=== PATIENT | female | born 1965 | race Caucasian/White ===

== ENCOUNTER 2018-01-06 13:23 | Day surgery (SDC) | payer BC, SELFPAY ==
[~2018-01-06] VITALS: Ht 160 cm; Wt 83.3 kg
[~2018-01-06 13:23] MED LIST: ALPR.25 PO; AMOCLA875 PO; ASPI325 PO; ASPI81CH PO; ASPI81EC PO; Aspir 8181 MG PO; BUSP15 PO; CARI350 PO; CITA20 PO; CYCL10; Catapres0.1 MG PO; DIVA500EC PO; DOXY100 PO; ELAVIL; ESTR2 PO; GABA100 PO; GABA300 PO; HYDACE5 PO; HYDACE7.5 PO; HYDMOR2 PO; HYDR-86 PO; IBUP600 PO; LAMO100 PO; LAMO25 PO; LEVCAR10; LISI10 PO; LISI20 PO; LORA1 PO; Lisinopril2.5 MG PO; METCAR500 PO; METO25ER PO; METO50 PO; NAPR500 PO; NITR.4SL SL; OXYACE7.5T PO; PARO10; PRAV10 PO; PRAV20 PO; PRAV40 PO; Pepcid20 MG PO; ROPI1 PO; RXHYDMOR2 PO; Roxicodone5 MG PO; SERT100; TOPI100 PO; TRAZ100 PO; TRAZ50; Valium5 MG PO
== END 2018-01-06 16:50 | disposition home or self-care (01) ==
LOC: ORSCSDS 13:23
PROVIDERS: Podiatrist
PROC: 0QSP04Z Reposition Left Metatarsal with Internal Fixation Device, Open Approach (ICD-10-PCS; principal; 2018-01-06 14:45)
DX: M20.12 Hallux valgus (acquired), left foot (principal); M79.672 Pain in left foot; I10 Essential (primary) hypertension; F17.210 Nicotine dependence, cigarettes, uncomplicated; Z79.899 Other long term (current) drug therapy
CPT/HCPCS: C1713; J0690; J2250; J2370; J3010; J7120

== ENCOUNTER 2020-07-11 11:36 | Day surgery (SDC) | payer OTHER ==
[~2020-07-11] VITALS: Ht 160 cm; Wt 84.0 kg
[~2020-07-11 11:36] MED LIST changes: +ALBU90OI INH; +HYDPAM25 PO; +IBUP400 PO; +MELO7.5 PO; +METF500 PO; +OLAN10 PO; +OXYB5ER
--- NOTE | 2020-07-11 14:25 | NUR ---
07/11/20 1425 Chelsea Braden 12 CC OF NORMAL SALINE AND INDIGO CARMINE INJECTED IN ASCENDING COLON
--- NOTE | 2020-07-11 15:33 | NUR ---
07/11/20 1533 Erica Banks WHEN ASKED PT. IF SHE HAD ANY ANY PAIN BUT VERBALIZED THE ROOF OF HER MOUTH WAS SORE. INSTRUCTED PT. THAT IT WAS PROBABLY FROM HER BITE BLOCK THAT WAS PLACED IN HER MOUTH FOR HER PROCEDURE & INSTRUCTED TO CALL IF DIDN'T GET BETTER.
== END 2020-07-11 15:23 | disposition home or self-care (01) ==
LOC: ORSCSDS 11:36
PROVIDERS: Student in an Organized Health Care Education/Training Program
PROC: 0DB98ZX Excision of Duodenum, Via Natural or Artificial Opening Endoscopic, Diagnostic (ICD-10-PCS; principal; 2020-07-11 13:15)
PROC: 0DBK8ZX Excision of Ascending Colon, Via Natural or Artificial Opening Endoscopic, Diagnostic (ICD-10-PCS; principal; 2020-07-11 13:15)
PROC: 0DBH8ZX Excision of Cecum, Via Natural or Artificial Opening Endoscopic, Diagnostic (ICD-10-PCS; principal; 2020-07-11 13:15)
PROC: 0DB78ZX Excision of Stomach, Pylorus, Via Natural or Artificial Opening Endoscopic, Diagnostic (ICD-10-PCS; principal; 2020-07-11 13:15)
PROC: 0DBN8ZX Excision of Sigmoid Colon, Via Natural or Artificial Opening Endoscopic, Diagnostic (ICD-10-PCS; principal; 2020-07-11 13:15)
PROC: 0DB58ZX Excision of Esophagus, Via Natural or Artificial Opening Endoscopic, Diagnostic (ICD-10-PCS; principal; 2020-07-11 13:15)
DX: R19.7 Diarrhea, unspecified (principal); K21.00 Gastro-esophageal reflux disease with esophagitis, without bleeding; K29.80 Duodenitis without bleeding; D12.2 Benign neoplasm of ascending colon; D12.0 Benign neoplasm of cecum; K29.70 Gastritis, unspecified, without bleeding; I10 Essential (primary) hypertension; E78.5 Hyperlipidemia, unspecified; I25.10 Atherosclerotic heart disease of native coronary artery without angina pectoris; G47.33 Obstructive sleep apnea (adult) (pediatric); F17.210 Nicotine dependence, cigarettes, uncomplicated; K75.81 Nonalcoholic steatohepatitis (NASH); E11.9 Type 2 diabetes mellitus without complications; Z79.899 Other long term (current) drug therapy; Z79.82 Long term (current) use of aspirin; Z86.718 Personal history of other venous thrombosis and embolism; Z79.84 Long term (current) use of oral hypoglycemic drugs
CPT/HCPCS: 82947; 88305; 88342; J2250; J2704; J7120

== ENCOUNTER 2020-12-02 13:13 | Day surgery (SDC) | payer OTHER ==
[~2020-12-02] VITALS: Ht 160 cm; Wt 84.5 kg
--- NOTE | 2020-12-02 13:34 | NUR ---
12/02/20 Arsalan4 Rama Julien 1 TRY RIGHT HAND BLEW
--- NOTE | 2020-12-02 14:52 | NUR ---
12/02/20 1452 MICKY GOMEZ 13 CC SALINE INJECTED DURING PROCEDURE
== END 2020-12-02 15:23 | disposition home or self-care (01) ==
LOC: ORSCSDS 13:13
PROVIDERS: Student in an Organized Health Care Education/Training Program
PROC: 0DBK8ZX Excision of Ascending Colon, Via Natural or Artificial Opening Endoscopic, Diagnostic (ICD-10-PCS; principal; 2020-12-02 15:00)
DX: Z86.010 Personal history of colon polyps (principal); D12.2 Benign neoplasm of ascending colon; K57.30 Diverticulosis of large intestine without perforation or abscess without bleeding; K64.8 Other hemorrhoids; F17.210 Nicotine dependence, cigarettes, uncomplicated; E11.9 Type 2 diabetes mellitus without complications; I10 Essential (primary) hypertension; E78.5 Hyperlipidemia, unspecified; G47.33 Obstructive sleep apnea (adult) (pediatric); K21.9 Gastro-esophageal reflux disease without esophagitis; Z79.899 Other long term (current) drug therapy; E66.9 Obesity, unspecified; Z68.33 Body mass index [BMI] 33.0-33.9, adult
CPT/HCPCS: 82947; 88305; J2250; J2405; J2704; J7120

== ENCOUNTER 2021-11-11 11:28 | Day surgery (SDC) | payer OTHER ==
[~2021-11-11] VITALS: Ht 160 cm; Wt 88.7 kg
[~2021-11-11 11:28] MED LIST changes: +BUSP5 PO; +DULO30 PO; -ESTR2 PO; +ESTRADIOL1 MG PO; +MOBIC15 MG; +OMEP20ER PO; +ROSU10TA PO
== END 2021-11-11 13:40 | disposition home or self-care (01) ==
LOC: ORSCSDS 11:28
PROVIDERS: Student in an Organized Health Care Education/Training Program
PROC: 0DBM8ZX Excision of Descending Colon, Via Natural or Artificial Opening Endoscopic, Diagnostic (ICD-10-PCS; principal; 2021-11-11 12:45)
PROC: 0DBK8ZX Excision of Ascending Colon, Via Natural or Artificial Opening Endoscopic, Diagnostic (ICD-10-PCS; principal; 2021-11-11 12:45)
PROC: 0DBL8ZX Excision of Transverse Colon, Via Natural or Artificial Opening Endoscopic, Diagnostic (ICD-10-PCS; principal; 2021-11-11 12:45)
DX: Z86.010 Personal history of colon polyps (principal); D12.3 Benign neoplasm of transverse colon; D12.2 Benign neoplasm of ascending colon; D12.4 Benign neoplasm of descending colon; K57.30 Diverticulosis of large intestine without perforation or abscess without bleeding; K64.8 Other hemorrhoids; E11.9 Type 2 diabetes mellitus without complications; I10 Essential (primary) hypertension; E78.5 Hyperlipidemia, unspecified; Z79.899 Other long term (current) drug therapy; Z79.84 Long term (current) use of oral hypoglycemic drugs; I25.10 Atherosclerotic heart disease of native coronary artery without angina pectoris; Z86.718 Personal history of other venous thrombosis and embolism; J45.909 Unspecified asthma, uncomplicated; F43.10 Post-traumatic stress disorder, unspecified; Z87.891 Personal history of nicotine dependence; Z79.82 Long term (current) use of aspirin; G47.33 Obstructive sleep apnea (adult) (pediatric); E66.9 Obesity, unspecified; Z68.34 Body mass index [BMI] 34.0-34.9, adult
CPT/HCPCS: 82947; 88305; J2250; J2704; J7120

== ENCOUNTER 2021-12-07 10:16 | Emergency (ER) | payer OTHER ==
[~2021-12-07] VITALS: Ht 157.5 cm; Wt 88.5 kg
[2021-12-07] MEDS ORDERED: CEPH500 PO (11:43)
== END 2021-12-07 12:18 | disposition home or self-care (01) ==
LOC: ER 10:16
DX: L03.115 Cellulitis of right lower limb (principal); E11.9 Type 2 diabetes mellitus without complications; F17.210 Nicotine dependence, cigarettes, uncomplicated; Z88.2 Allergy status to sulfonamides; Z88.0 Allergy status to penicillin; Z79.899 Other long term (current) drug therapy; Z79.84 Long term (current) use of oral hypoglycemic drugs; Z79.82 Long term (current) use of aspirin
CPT/HCPCS: 93971; 99283-25; A9270

== ENCOUNTER 2022-01-27 06:24 | Day surgery (SDC) | payer OTHER ==
[~2022-01-27] VITALS: Ht 157.5 cm; Wt 88.5 kg
[~2022-01-27 06:24] MED LIST changes: +CEPH500 PO
--- NOTE | 2022-01-27 06:46 | NUR ---
PT ADMITTED TO [facility]. AGREES WITH PLANNED SURGERY. LUNG SOUNDS CLEAR.
--- NOTE | 2022-01-27 09:26 | NUR ---
0915- NASHUA GIVEN PER ORDER. STERI STRIP TO BELLY BUTTON C/D/I. UNABLE TO GET MY COMPUTER TO WORK TO SCAN PT MEDICATION, HAD TO OVERRIDE. PT TOLERTING CRACKERS AND KAVYA MIST.
--- NOTE | 2022-01-27 10:12 | NUR ---
0945- pt dressed, STERI STRIP TO BELLY BUTTON C/D/I. PT STATES SHE HAS ICE PACK AT HOME. Discharge instructions reviewed with patient. Patient verbalizes understanding. Copy given to patient to take home. Discharged via wheelchair to private car for ride home.
== END 2022-01-27 09:45 | disposition home or self-care (01) ==
LOC: ORSCMMR 06:24 → ORD 07:30 → ORSCMMR 07:30
PROVIDERS: Surgery
PROC: 0WUF0JZ Supplement Abdominal Wall with Synthetic Substitute, Open Approach (ICD-10-PCS; principal; 2022-01-27 07:30)
DX: K42.0 Umbilical hernia with obstruction, without gangrene (principal); I10 Essential (primary) hypertension; Z87.891 Personal history of nicotine dependence; K21.9 Gastro-esophageal reflux disease without esophagitis; G40.802 Other epilepsy, not intractable, without status epilepticus; E11.9 Type 2 diabetes mellitus without complications; F41.8 Other specified anxiety disorders; F43.10 Post-traumatic stress disorder, unspecified; Z79.899 Other long term (current) drug therapy; Z79.82 Long term (current) use of aspirin; Z79.84 Long term (current) use of oral hypoglycemic drugs
CPT/HCPCS: 82947; A9270; C1781; J0690; J1100; J1885; J2370; J2405; J2704; J2710; J3010; J7120

== ENCOUNTER 2023-04-06 10:33 | Emergency (ER) | payer OTHER ==
[~2023-04-06] VITALS: Ht 157.5 cm; Wt 79.4 kg
[2023-04-06 11:00] VITALS: BP 149/86
== END 2023-04-06 11:48 | disposition home or self-care (01) ==
LOC: ER 10:33
DX: M54.50 Low back pain, unspecified (principal); M25.571 Pain in right ankle and joints of right foot; M25.471 Effusion, right ankle; M25.511 Pain in right shoulder; M25.561 Pain in right knee; W01.198A Fall on same level from slipping, tripping and stumbling with subsequent striking against other object, initial encounter; X50.1XXA Overexertion from prolonged static or awkward postures, initial encounter; E11.9 Type 2 diabetes mellitus without complications; F17.210 Nicotine dependence, cigarettes, uncomplicated; Z88.2 Allergy status to sulfonamides; Z79.899 Other long term (current) drug therapy; Z79.82 Long term (current) use of aspirin; Z79.84 Long term (current) use of oral hypoglycemic drugs
CPT/HCPCS: 96372; 99283-25; J1885

== ENCOUNTER 2023-09-17 09:29 | Emergency (ER) | payer OTHER ==
[~2023-09-17] VITALS: Ht 160 cm; Wt 73.5 kg
[~2023-09-17 09:29] MED LIST changes: -DULO30 PO; +DULO60 PO; +METO25 PO
[2023-09-17 09:49] LABS: BASOPHILS ABSOLUTE AUTO 0.13 K/mm3 (0.00-0.23); BASOPHILS PERCENT AUTO 1 % (0-2); EOSINOPHILS ABSOLUTE AUTO 0.41 K/mm3 (0.00-0.68); EOSINOPHILS PERCENT AUTO 3 % (0-6); Hematocrit 40.2 % (33.0-51.0); Hemoglobin 13.7 g/dL (11.5-16.0); IMMATURE GRAN ABSOLUTE AUTO 0.05 K/mm3 (0.00-0.10); IMMATURE GRAN PERCENT AUTO 0 % (0-1); LYMPHOCYTES ABSOLUTE AUTO 2.15 K/mm3 (0.84-5.20); LYMPHOCYTES PERCENT AUTO 16 % (21-46); MONOCYTES ABSOLUTE AUTO 0.58 K/mm3 (0.16-1.47); MONOCYTES PERCENT AUTO 4 % (4-13); Mean Corpuscular HGB 30.4 pg (26.0-34.0); Mean Corpuscular HGB Conc 34.1 g/dL (31.5-36.5); Mean Corpuscular Volume 89 fL (80-100); Mean Platelet Volume 9.7 fL (9.1-12.4); NEUTROPHILS ABSOLUTE AUTO 10.08 K/mm3 (1.96-9.15); NEUTROPHILS PERCENT AUTO 75 % (41-73); Platelet Count 310 K/mm3 (150-400); RDW Standard Deviation 42.5 fL (35.1-46.3)
[2023-09-17 10:11] LABS: Albumin, Blood 3.6 g/dL (3.4-5.0); Bilirubin, Total 0.3 mg/dL (0.1-1.0); Bun/Creatinine Ratio 36.4 (12.0-20.0); Creatinine, Blood 0.41 mg/dL (0.40-1.00); Globulin, Blood 3.5 g/dL (2.2-4.0); Potassium, Blood 3.5 mmol/L (3.5-5.5); Total Protein, Blood 7.1 g/dL (6.4-8.2)
[2023-09-17 10:23] LABS: Source, Urine Clean Catch
[2023-09-17 10:26] LABS: Bilirubin, Urine Neg (Neg); Blood, Urine 3+ (Neg); Color, Urine Yellow (P-Yellow); Glucose Qualitative, Urine Neg (Neg); Ketones, Urine Neg (Neg); Leukocyte Esterase, Urine Neg (Neg); Nitrite, Urine Neg (Neg); Protein, Urine 2+ (Neg); Urobilinogen, Urine NORM (Normal)
[2023-09-17 10:31] LABS: Appearance, Urine Hazy (Clear)
[2023-09-17 10:34] LABS: Bacteria Mod /hpf; Squamous Epithelial Cells Few /hpf (Few)
[2023-09-17 10:35] LABS: Amorphous Light (0-Heavy); Hyaline Casts 0-2 /lpf (0-2); Mucus Light (0-Heavy)
[2023-09-17] MEDS ORDERED: HYDROCODONE-AC1 EA19 PO ×2 (12:41→12:43)
[2023-09-17] MEDS ORDERED: AMOCLA875 PO (12:41)
[2023-09-17] MEDS ORDERED: PROM25 PO (12:41)
[2023-09-17 12:50] VITALS: BP 171/88
== END 2023-09-17 13:08 | disposition home or self-care (01) ==
LOC: ER 09:29
PROVIDERS: Emergency Medicine
DX: K52.9 Noninfective gastroenteritis and colitis, unspecified (principal); F17.210 Nicotine dependence, cigarettes, uncomplicated; Z88.0 Allergy status to penicillin; Z88.2 Allergy status to sulfonamides
CPT/HCPCS: 74177; 80053; 81001; 83690; 84484; 85025; 87086; 93005; 93010; 96361; 96374-59; 96375; 96376; 99284-25; A9270; J1170; J2405; J7030; Q9967

== ENCOUNTER 2023-09-18 10:36 | Inpatient (IN) | payer OTHER ==
[~2023-09-18] VITALS: Ht 157.5 cm; Wt 72.5 kg
[~2023-09-18 10:36] MED LIST changes: +HYDROCODONE-AC1 EA19 PO; +PROM25 PO
[2023-09-18 11:47] LABS: BASOPHILS ABSOLUTE AUTO 0.14 K/mm3 (0.00-0.23); BASOPHILS PERCENT AUTO 1 % (0-2); EOSINOPHILS ABSOLUTE AUTO 0.26 K/mm3 (0.00-0.68); EOSINOPHILS PERCENT AUTO 2 % (0-6); Hematocrit 40.9 % (33.0-51.0); Hemoglobin 14.2 g/dL (11.5-16.0); IMMATURE GRAN ABSOLUTE AUTO 0.04 K/mm3 (0.00-0.10); IMMATURE GRAN PERCENT AUTO 0 % (0-1); LYMPHOCYTES ABSOLUTE AUTO 1.93 K/mm3 (0.84-5.20); LYMPHOCYTES PERCENT AUTO 16 % (21-46); MONOCYTES ABSOLUTE AUTO 0.69 K/mm3 (0.16-1.47); MONOCYTES PERCENT AUTO 6 % (4-13); Mean Corpuscular HGB 31.1 pg (26.0-34.0); Mean Corpuscular HGB Conc 34.7 g/dL (31.5-36.5); Mean Corpuscular Volume 90 fL (80-100); Mean Platelet Volume 9.7 fL (9.1-12.4); NEUTROPHILS ABSOLUTE AUTO 8.93 K/mm3 (1.96-9.15); NEUTROPHILS PERCENT AUTO 74 % (41-73); Platelet Count 322 K/mm3 (150-400); RDW Coefficient Variation 13.2 % (11.7-14.2); RDW Standard Deviation 43.1 fL (35.1-46.3); Red Blood Cell Count 4.56 M/mm3 (3.80-5.20); White Blood Cell Count 11.99 K/mm3 (4.00-11.30)
[2023-09-18 12:09] LABS: Albumin, Blood 3.8 g/dL (3.4-5.0); Albumin/Globulin Ratio 1.1 (0.8-1.8); Bilirubin, Total 0.6 mg/dL (0.1-1.0); Bun/Creatinine Ratio 18.5 (12.0-20.0); Calcium, Blood 9.2 mg/dL (8.5-10.1); Creatinine, Blood 0.43 mg/dL (0.40-1.00); Globulin, Blood 3.6 g/dL (2.2-4.0); Potassium, Blood 2.9 mmol/L (3.5-5.5); Total Protein, Blood 7.4 g/dL (6.4-8.2)
[2023-09-18 16:42] VITALS: BP 204/78
[2023-09-18 19:05] VITALS: BP 184/84
[2023-09-18 23:27] LABS: Adenovirus F 40/41 Not Detected (NOT DETECT); Astrovirus Not Detected (NOT DETECT); Campylobacter Sp Not Detected (NOT DETECT); Cryptosporidium Not Detected (NOT DETECT); Cyclospora Cayetanensis Not Detected (NOT DETECT); E. Coli O157 Not Detected (NOT DETECT); Entamoeba Histolytica Not Detected (NOT DETECT); Enteroaggregative E. coli-EAEC Not Detected (NOT DETECT); Enteropathogenic E. coli-EPEC Not Detected (NOT DETECT); Enterotoxigenic E. coli-ETEC Not Detected (NOT DETECT); Giardia Lamblia Not Detected (NOT DETECT); Norovirus GI/GII Not Detected (NOT DETECT); Plesiomonas Shigelloides Not Detected (NOT DETECT); Rotavirus A Not Detected (NOT DETECT); Salmonella Sp Not Detected (NOT DETECT); Sapovirus Not Detected (NOT DETECT); Shiga Toxin-prod E. coli-STEC Not Detected (NOT DETECT); Shigella/Enteroin E. coli-EIEC Not Detected (NOT DETECT); Vibrio Cholerae Not Detected (NOT DETECT); Vibrio Sp Not Detected (NOT DETECT); Yersinia Enterocolitica Not Detected (NOT DETECT)
[2023-09-19 03:50] VITALS: BP 131/90
--- NOTE | 2023-09-19 04:44 | NUR ---
SHIFT SUMMARY JORDYN WAS ALERT AND FULLY ORIENTED ON ASSESSMENT. SHE IS INDEPENDENT IN THE ROOM, AND COOPERATIVE. PT WAS VERY PAINFUL AT THE START OF SHIFT IN EPIGASTRIC REGION. PT ONLY HAD 25mic OF FENTANYL Q6 ORDERED, I GAVE THAT TO NO EFFECT WHATSOEVER, AND CONTACTED THE HOSPITALIST. ORDER PLACED FOR 1-2 MG DILAUDED Q6. PT BECAME NAUSEOUS AND HAD ONE EPISODE OF VOMITING. 1MG DILAUDED AND 4MG ZOFRAN ADMINISTERED TO IMMEDIATE AND LASTING RELIEF. PT IS STILL NPO AT THIS TIME, ALL PO MEDS HELD. 10 MG HYDRALYZINE ADMINISTERED FOR HIGH B/P. PT RESTING IN BED AT A LOW POSTION WITH CALL LIGHT IN REACH.
[2023-09-19 05:51] LABS: BASOPHILS PERCENT AUTO 2 % (0-2); EOSINOPHILS PERCENT AUTO 3 % (0-6); Hematocrit 43.2 % (33.0-51.0); Hemoglobin 14.7 g/dL (11.5-16.0); IMMATURE GRAN ABSOLUTE AUTO 0.03 K/mm3 (0.00-0.10); IMMATURE GRAN PERCENT AUTO 0 % (0-1); LYMPHOCYTES ABSOLUTE AUTO 3.16 K/mm3 (0.84-5.20); LYMPHOCYTES PERCENT AUTO 27 % (21-46); MONOCYTES ABSOLUTE AUTO 1.19 K/mm3 (0.16-1.47); MONOCYTES PERCENT AUTO 10 % (4-13); Mean Corpuscular HGB 30.6 pg (26.0-34.0); Mean Corpuscular Volume 90 fL (80-100); Mean Platelet Volume 9.8 fL (9.1-12.4); NEUTROPHILS ABSOLUTE AUTO 6.71 K/mm3 (1.96-9.15); NEUTROPHILS PERCENT AUTO 57 % (41-73); Platelet Count 372 K/mm3 (150-400); RDW Standard Deviation 42.4 fL (35.1-46.3); White Blood Cell Count 11.69 K/mm3 (4.00-11.30)
[2023-09-19 06:20] LABS: Albumin, Blood 3.9 g/dL (3.4-5.0); Albumin/Globulin Ratio 1.1 (0.8-1.8); Bilirubin, Total 0.6 mg/dL (0.1-1.0); Bun/Creatinine Ratio 21.1 (12.0-20.0); Calcium, Blood 9.3 mg/dL (8.5-10.1); Creatinine, Blood 0.48 mg/dL (0.40-1.00); Globulin, Blood 3.5 g/dL (2.2-4.0); Total Protein, Blood 7.4 g/dL (6.4-8.2)
[2023-09-19 07:30] VITALS: BP 126/78
[2023-09-19 15:15] VITALS: BP 161/90
--- NOTE | 2023-09-19 16:56 | NUR ---
SHIFT SUMMARY; PATIENT IS CHANGED TO A FULL LIQUID DIET. SHE REQUESTS PAIN MEDICATION TODAY FOR ABDOMINAL PAIN. DOES VOMIT SMALL AMOUNT AFTER LUNCH. SHE IS INDEPENDANT TO BATHROOM. USES CALL LIGHT APPROPRIATELY. CHEM BG ARE ALL WNL AND DO NOT REQUIRE COVERAGE WITH INSULIN.
[2023-09-19 19:45] VITALS: BP 128/69
--- NOTE | 2023-09-20 04:10 | NUR ---
SHIFT SUMMARY JORDYN IS ALERT AND FULLY ORIENTED ON ASSESSMENT, AND SHE IS INDEPENDENT IN THE ROOM. PT STATES THAT SHE HAS BEEN FEELING BETTER TODAY. SHE HAS BEEN ADVANCED TO FULL LIQUID DIET, AND HAS BEEN TOLERATING HER PO MEDS. PT IS STILL PAINFUL, AND HAS INTERMITTENT NAUSEA. MEDICATED PER EMAR. NO ACUTE EVENTS TONIGHT, NO CHANGES IN CONDITION NOTED. PT RESTING IN BED AT A LOW POSITION.
[2023-09-20 05:03] LABS: Hematocrit 39.2 % (33.0-51.0); Hemoglobin 13.4 g/dL (11.5-16.0); Mean Corpuscular HGB 31.5 pg (26.0-34.0); Mean Corpuscular HGB Conc 34.2 g/dL (31.5-36.5); Mean Corpuscular Volume 92 fL (80-100); Mean Platelet Volume 9.6 fL (9.1-12.4); Platelet Count 312 K/mm3 (150-400); RDW Coefficient Variation 13.2 % (11.7-14.2); RDW Standard Deviation 44.5 fL (35.1-46.3); Red Blood Cell Count 4.26 M/mm3 (3.80-5.20); White Blood Cell Count 9.82 K/mm3 (4.00-11.30)
[2023-09-20 05:11] VITALS: BP 121/79
[2023-09-20 05:30] LABS: Bun/Creatinine Ratio 32.7 (12.0-20.0); Calcium, Blood 8.6 mg/dL (8.5-10.1); Creatinine, Blood 0.55 mg/dL (0.40-1.00); Potassium, Blood 3.9 mmol/L (3.5-5.5)
[2023-09-20 07:56] VITALS: BP 126/87
[2023-09-20] MEDS ORDERED: OXYC5 PO (14:13)
[2023-09-20] MEDS ORDERED: Methocarbamol750 MG PO (14:14)
[2023-09-20] MEDS ORDERED: ONDA4ODT PO (14:14)
[2023-09-20] MEDS ORDERED: PREG200 PO (14:15)
--- NOTE | 2023-09-20 15:50 | NUR ---
CALLED DR VILLAFANA- PT MEDICATED FOR PAIN WITH PO NORCO. PAIN WAS MANAGED, BUT DOSE MAY BE A LITTLE LOW. PLAN IS FOR THE PT TO DC HOME TOMORROW POTENTIALLY; PO PAIN MANAGEMENT NEEDS TO BE CORRECT. PT HAD OXY ORDERED AT HOME, SHE STATES THIS MED MADE HER REALLY NAUSEAOUS, NORCO DOES NOT SEEM TO DO THAT. SPOKE TO MD ABOUT DOSE CHANGE TO ENSURE PO MANAGEMENT IS ADEQUATE. ALSO THE PT DOES NOT HAVE ANY ANTI-EMETICS THAT ARE PO. MD WILL BE ROUNDING SOON AND WILL EVALUATE THE NEED FOR ADDITIONAL MEDS.
[2023-09-20 16:36] VITALS: BP 121/68
--- NOTE | 2023-09-20 17:24 | NUR ---
CALLED DR ROSARIO- PT IS UP PACING IN THE ROOM AND APPEARS RESTLESS AND PAINFUL, WHEN ASKED SHE STATES HER PAIN LEVEL IS 6/10. PAIN MED DOSE WAS CHANGED HOWEVER NEXT DOSE NOT AVAILABLE FOR ADDITIONAL THREE HOURS. OT ORDER RECIEVED FOR 2 NORCO NOW. NEXT DOSE CAN BE Q6.
--- NOTE | 2023-09-20 17:41 | NUR ---
SHIFT SUMMARY- PT ALERT, ORIENTED AND INDEPENDENT IN THE ROOM. SHE IS CURRENTLY DRINKING A CUP OF BROTH AND SOME COFFEE. SHE DOES NOTLIKE THE OFFERINGS FOR THE FULL LIQUID DIET AND HAS NOT BEEN CONSUMING MUCH. PAIN MEDS CHANGED TO 1-2 TABS Q6P MD WILL DC IV ORDERS AND SWITCH TO PO ANTIEMETICS WELL. FIRST HIGHER DOSE OF PAIN MEDS GIVEN THIS EVENING. WILL PASS ON TO NIGHT RN IN REPORT, PLAN IS FOR PT TO DC HOME TOMORROW. PT IN BED, CALL LIGHT IN REACH, NO S&S OF DISTRESS NOTED.
[2023-09-20 20:42] VITALS: BP 109/67
[2023-09-21 05:11] VITALS: BP 104/52
[2023-09-21 05:34] LABS: BASOPHILS ABSOLUTE AUTO 0.16 K/mm3 (0.00-0.23); BASOPHILS PERCENT AUTO 2 % (0-2); EOSINOPHILS ABSOLUTE AUTO 1.02 K/mm3 (0.00-0.68); EOSINOPHILS PERCENT AUTO 15 % (0-6); Hematocrit 37.6 % (33.0-51.0); Hemoglobin 12.7 g/dL (11.5-16.0); IMMATURE GRAN ABSOLUTE AUTO 0.02 K/mm3 (0.00-0.10); IMMATURE GRAN PERCENT AUTO 0 % (0-1); LYMPHOCYTES ABSOLUTE AUTO 2.44 K/mm3 (0.84-5.20); LYMPHOCYTES PERCENT AUTO 35 % (21-46); MONOCYTES ABSOLUTE AUTO 0.68 K/mm3 (0.16-1.47); MONOCYTES PERCENT AUTO 10 % (4-13); Mean Corpuscular HGB 30.7 pg (26.0-34.0); Mean Corpuscular HGB Conc 33.8 g/dL (31.5-36.5); Mean Corpuscular Volume 91 fL (80-100); Mean Platelet Volume 9.6 fL (9.1-12.4); NEUTROPHILS ABSOLUTE AUTO 2.61 K/mm3 (1.96-9.15); NEUTROPHILS PERCENT AUTO 38 % (41-73); Platelet Count 274 K/mm3 (150-400); RDW Coefficient Variation 12.8 % (11.7-14.2); RDW Standard Deviation 42.4 fL (35.1-46.3); Red Blood Cell Count 4.14 M/mm3 (3.80-5.20); White Blood Cell Count 6.93 K/mm3 (4.00-11.30)
[2023-09-21 06:04] LABS: Bun/Creatinine Ratio 27.8 (12.0-20.0); Calcium, Blood 8.7 mg/dL (8.5-10.1); Creatinine, Blood 0.54 mg/dL (0.40-1.00); Potassium, Blood 3.7 mmol/L (3.5-5.5)
[2023-09-21 07:43] VITALS: BP 117/66
--- NOTE | 2023-09-21 08:03 | NUR ---
SHIFT SUMMARY PT IS A&OX4, VSS ON ROOM AIR. C/O PAIN MORE PREDOMINANT IN HER BACK. PAIN MEDICATIONS GIVEN PER EMAR. UP INDEPENDENTLY IN ROOM/BR. VOIDING ADEQUATELY, NO BM OVER NIGHT. ENTERIC PRECAUTIONS MAINTAINED. BED IN LOWEST POSITION, CALL LIGHT WITHIN REACH. FIRE SAFETY CHECKS COMPLETED
--- NOTE | 2023-09-21 13:02 | NUR ---
CALLED DR ROSARIO- SPOKE TO MD ON EVENING ROUNDS AND DISCUSSED CHANGING TO PO ANTI-EMETICS, HOWEVER THERE IS STILL IV ORDER FOR THAT WELL IV DILAUDID. DR ROSARIO IS CHANGING ORDERS AT THIS TIME. PT HAD STATED A LITTLE NAUSEA THIS AFTERNOON THAT IMPROVED WITH SIMETHICONE. AWARE.
[2023-09-21 15:03] VITALS: BP 101/62
--- NOTE | 2023-09-21 16:41 | NUR ---
SHIFT SUMMARY PATIENT WITH SOME ABDDOMINAL PAIN AFTER BREAKFAST, RELIEVED BY SIMETHICONE WITH LARGE AMOUNTS OF BURPING. PATIENT HAD SOME NAUSEA THIS AFTERNOON RELIEVED BY ORAL ZOFRAN. NO BOWEL MOVEMENTS TODAY. PATIENT UP AD PRO IN ROOM INDEPENDENT. PATIENT MAKES NEEDS KNOWN.
[2023-09-21 22:27] VITALS: BP 114/75
--- NOTE | 2023-09-22 04:55 | NUR ---
SHIFT SUMMARY - NO ACUTE CHANGES THROUGHOUT THIS SHIFT. PT'S MAIN COMPLAINT HAS BEEN BACK PAIN, AND MILD ABDOMINAL PAIN. MEDICATED PER ORDERS. PT HAS BEEN SLEEPING THROUGHOUT MOST OF THE NIGHT. PT IS CURRENTLY SITTING UP IN THE CHAIR. PT DENIES HAVING ANY DIARRHEA THROUGHOUT THIS SHIFT. CALL LIGHT WITHIN REACH. BED IN LOW POSITION. PT HAS BEEN INDEPENDENT IN THE ROOM. WILL CONTINUE TO MONITOR UNTIL AM SHIFT CHANGE.
[2023-09-22 05:13] VITALS: BP 104/71
[2023-09-22 06:01] LABS: BASOPHILS ABSOLUTE AUTO 0.16 K/mm3 (0.00-0.23); BASOPHILS PERCENT AUTO 2 % (0-2); EOSINOPHILS ABSOLUTE AUTO 0.99 K/mm3 (0.00-0.68); EOSINOPHILS PERCENT AUTO 13 % (0-6); Hematocrit 38.8 % (33.0-51.0); IMMATURE GRAN ABSOLUTE AUTO 0.01 K/mm3 (0.00-0.10); IMMATURE GRAN PERCENT AUTO 0 % (0-1); LYMPHOCYTES ABSOLUTE AUTO 2.71 K/mm3 (0.84-5.20); LYMPHOCYTES PERCENT AUTO 36 % (21-46); MONOCYTES ABSOLUTE AUTO 0.72 K/mm3 (0.16-1.47); MONOCYTES PERCENT AUTO 9 % (4-13); Mean Corpuscular HGB 30.4 pg (26.0-34.0); Mean Corpuscular HGB Conc 33.5 g/dL (31.5-36.5); Mean Corpuscular Volume 91 fL (80-100); Mean Platelet Volume 9.9 fL (9.1-12.4); NEUTROPHILS ABSOLUTE AUTO 3.05 K/mm3 (1.96-9.15); NEUTROPHILS PERCENT AUTO 40 % (41-73); Platelet Count 305 K/mm3 (150-400); RDW Coefficient Variation 12.8 % (11.7-14.2); RDW Standard Deviation 42.3 fL (35.1-46.3); Red Blood Cell Count 4.28 M/mm3 (3.80-5.20); White Blood Cell Count 7.64 K/mm3 (4.00-11.30)
--- NOTE | 2023-09-22 06:02 | NUR ---
PT DECLINED AN ICE PACK OR ANYTHING FURTHER FOR HER BACK PAIN - REPORTS "I AM USED TO IT." PT HAS BEEN WEARING HER BACK BRACE ON/OFF THROUGHOUT THE NIGHT, WHICH SHE REPORTS ALSO HELPS HER BACK PAIN.
[2023-09-22 06:30] LABS: Bun/Creatinine Ratio 21.5 (12.0-20.0); Calcium, Blood 8.9 mg/dL (8.5-10.1); Creatinine, Blood 0.56 mg/dL (0.40-1.00); Potassium, Blood 3.8 mmol/L (3.5-5.5)
[2023-09-22 07:58] VITALS: BP 125/79
[2023-09-22 10:11] VITALS: BP 112/69
[2023-09-22] MEDS ORDERED: VANCOCIN HCL125 MG PO (13:23)
[2023-09-22] MEDS ORDERED: LISI20 PO (13:23)
--- NOTE | 2023-09-22 16:45 | NUR ---
DISCHARGE NOTE- PT WAS GIVEN VERBAL AND WRITTEN DISCHARGE INSTRUCTIONS AND ACKNOWLEDGED UNDERSTANDING OF THEM. MEDS WERE FAXED TO [facility] PER PT REQUEST. PT ESCORTED OUT VIA WC BY THE GATEHOUSE ATTENDANT. NO S&S OF DISTRESS AT THE TIME OF DISCHARGE. IV DC'D PRIOR TO DISCHARGE.
== END 2023-09-22 14:30 | disposition home or self-care (01) | DRG 392 ==
LOC: ER 10:36 → MEDS 10:37 → ENPENDDIS 09-22 13:28 → MEDS 09-22 14:30
PROVIDERS: Emergency Medicine; Family Medicine; Student in an Organized Health Care Education/Training Program; ADMIT Internal Medicine
DX: K52.9 Noninfective gastroenteritis and colitis, unspecified (principal); F17.210 Nicotine dependence, cigarettes, uncomplicated; E87.6 Hypokalemia; F32.A Depression, unspecified; F43.10 Post-traumatic stress disorder, unspecified; E11.9 Type 2 diabetes mellitus without complications; M19.90 Unspecified osteoarthritis, unspecified site; M54.9 Dorsalgia, unspecified; G25.81 Restless legs syndrome; E78.5 Hyperlipidemia, unspecified; K21.9 Gastro-esophageal reflux disease without esophagitis; G89.29 Other chronic pain; Z90.710 Acquired absence of both cervix and uterus; Z90.49 Acquired absence of other specified parts of digestive tract; Z98.890 Other specified postprocedural states; Z88.0 Allergy status to penicillin; Z88.2 Allergy status to sulfonamides; Z79.2 Long term (current) use of antibiotics; Z79.891 Long term (current) use of opiate analgesic; Z79.84 Long term (current) use of oral hypoglycemic drugs; Z79.811 Long term (current) use of aromatase inhibitors
CPT/HCPCS: 36415; 74018; 80048; 80053; 82947; 83690; 85025; 85027; 87324; 87507; 94760; 96361; 96365; 96366; 96372; 96375; 96376; 99285-25; A9270; G0378; J0360; J1170; J1650; J2405; J3010; J3480; J7030; J7050

== ENCOUNTER → 2025-06-11 | Outpatient (CLI) | payer OTHER ==
[~2025-06-11] MED LIST changes: +Methocarbamol750 MG PO; +ONDA4ODT PO; +OXYC5 PO; +PREG200 PO; +VANCOCIN HCL125 MG PO
== END ==
LOC: LAB SHORT 14:53 → LAB 14:53
DX: K52.9 Noninfective gastroenteritis and colitis, unspecified (principal); Z86.19 Personal history of other infectious and parasitic diseases
CPT/HCPCS: 87015; 87045; 87046; 87205; 87899